=== PATIENT | male | born 2000 | race Caucasian/White ===

== ENCOUNTER 2021-05-24 12:33 | Emergency (ER) | payer OTHER ==
[2021-05-24] MEDS ORDERED: Bacitracin 1 PK ONE (15:08)
== END 2021-05-24 15:10 ==
LOC: ERS 12:33 → EEVIPCON 12:33 → ERS 15:10
DX: S01.01XA Laceration without foreign body of scalp, initial encounter (principal); W17.89XA Other fall from one level to another, initial encounter; Y92.149 Unspecified place in prison as the place of occurrence of the external cause
CPT/HCPCS: 12002; 70450; 72125

== ENCOUNTER 2021-06-07 11:34 | Emergency (ER) | END 2021-06-07 13:00 | disposition home or self-care (01) | LOC: ERS 11:34 | DX: S01.01XD Laceration without foreign body of scalp, subsequent encounter (principal) ==